=== PATIENT | female | born 2005 | race Caucasian/White ===

== ENCOUNTER 2023-10-11 16:11 | Emergency (ER) | payer SELFPAY ==
[~2023-10-11] VITALS: Ht 160 cm; Wt 93.2 kg
[2023-10-11 16:19] VITALS: TEMP 98.2
[2023-10-11] MEDS ORDERED: Acetaminophen 500 MG TAB PO ONE (17:15)
[2023-10-11] MEDS ORDERED: Cyclobenzaprine 10 MG TAB PO ONE (17:15)
[2023-10-11 18:05] LABS: COLLECTION METHOD CLEAN CATCH
[2023-10-11 18:14] LABS: PH 5.5 (5.0-8.5); URINE APPEARANCE CLOUDY (CLEAR/HAZY); URINE BLOOD 3+ (NEGATIVE); URINE COLOR YELLOW (YELLOW); URINE GLUCOSE NEGATIVE (NEGATIVE); URINE KETONE NEGATIVE (NEGATIVE); URINE NITRATE NEGATIVE (NEGATIVE); URINE PROTEIN(semi-quant) NEGATIVE (NEGATIVE)
[2023-10-11] MEDS ORDERED: CEFTIN500 MG PO (18:24)
[2023-10-11] MEDS ORDERED: Cefuroxime 250 MG TAB PO ONE (18:30)
[2023-10-11 18:41] VITALS: BP 106/72; PULSE 86
== END 2023-10-11 18:41 | disposition home or self-care (01) ==
LOC: COL.ER 16:11
PROVIDERS: Nurse Practitioner
DX: M54.50 Low back pain, unspecified (principal); M54.6 Pain in thoracic spine; N39.0 Urinary tract infection, site not specified

== ENCOUNTER 2024-06-02 19:06 | Emergency (ER) | payer SELFPAY ==
[~2024-06-02] VITALS: Ht 162.6 cm; Wt 90.9 kg
[~2024-06-02 19:06] MED LIST: CEFTIN500 MG PO
[2024-06-02 19:22] VITALS: TEMP 98
[2024-06-02] MEDS ORDERED: NS 1,000 ML IV ONE (20:15)
[2024-06-02] MEDS ORDERED: Morphine 4 MG/ML VIAL IV ONE (20:15)
[2024-06-02] MEDS ORDERED: Ondansetron 4 MG/2 ML VIAL IV ONE (20:15)
[2024-06-02 20:39] LABS: BASO # 0.1 K/mm3 (0.0-0.2); BASO % 0.7 % (0.0-2.0); EOS # 0.3 K/mm3 (0.0-0.7); EOS % 3.1 % (0.0-4.0); GRAN # 5.4 K/mm3 (1.4-6.5); GRAN % 56.4 % (42.2-75.2); HEMATOCRIT 41.9 % (35.0-45.0); HEMOGLOBIN 14.4 g/dl (12.0-15.0); LYMPH # 2.8 K/mm3 (1.2-3.4); MEAN CELL VOLUME 92 fl (80.0-95.0); MEAN CORPUSCULAR HEMOGLOBIN 32 pg (26-32); MEAN CORPUSCULAR HGB CONC 34 g/dl (33.0-37.0); MEAN PLATELET VOLUME 9.7 fl (7.4-10.4); MONO # 0.9 K/mm3 (0.1-0.6); MONO % 9.6 % (1.7-9.3); PLATELET COUNT 321 K/mm3 (130-400); RED BLOOD COUNT 4.54 M/mm3 (4.10-5.30); REDCELL DISTRIBUTION WIDTH-CV 11.9 % (11.5-14.5)
[2024-06-02 21:05] LABS: BILIRUBIN,TOTAL 0.3 mg/dL (0.2-1.2); C-REACTIVE PROTEIN 0.47 mg/dL (0.00-0.50); CALCIUM 9.6 mg/dL (8.4-10.2); CREATININE, serum 0.85 mg/dL (0.57-1.11); POTASSIUM 3.7 mEq/L (3.5-4.5); TOTAL PROTEIN 7.5 g/dl (6.2-8.1)
[2024-06-02] MEDS ORDERED: Iohexol 300 - 100 ML VIAL IV ONE (21:40)
[2024-06-02] MEDS ORDERED: NS 100 ML IV ONE (21:40)
[2024-06-02 23:20] VITALS: BP 110/80; PULSE 72
== END 2024-06-02 23:15 | disposition home or self-care (01) ==
LOC: COL.ER 19:06
PROVIDERS: Emergency Medicine
DX: N93.9 Abnormal uterine and vaginal bleeding, unspecified (principal)
CPT/HCPCS: J2270; J2405; J7030; Q9967